=== PATIENT | male | born 1945 | race Caucasian/White ===

== ENCOUNTER 2017-08-28 08:45 | Day surgery (SDC) | payer MEDICARE, OTHER ==
[~2017-08-28] VITALS: Ht 185.4 cm; Wt 75.8 kg
[2017-08-28 08:59] VITALS: BP 126/87; PULSE 64; TEMP 97.7
[2017-08-28 10:38] VITALS: BP 123/74; PULSE 65; TEMP 97.6
[2017-08-28 10:53] VITALS: BP 118/76; PULSE 64
[2017-08-28 11:08] VITALS: BP 112/74; PULSE 61
[2017-08-28 11:23] VITALS: BP 104/61; PULSE 60
== END 2017-08-28 11:54 | disposition home or self-care (01) ==
LOC: SDCO 08:45
DX: Z12.11 Encounter for screening for malignant neoplasm of colon (principal); K64.0 First degree hemorrhoids; Z86.010 Personal history of colon polyps; Z80.0 Family history of malignant neoplasm of digestive organs
CPT/HCPCS: OP; J2250; J3010; J7030